=== PATIENT | male | born 1960 | race Caucasian/White ===

== ENCOUNTER 2023-04-11 09:27 | Inpatient (IN) | payer BC ==
[~2023-04-11] VITALS: Ht 175.3 cm; Wt 75.0 kg
--- NOTE | ~2023-04-11 | DS ---
[facility] [address] [place], [place] [address] Draft ADMISSION DATE: 04/19/2023 DISCHARGE DATE: 04/22/2023 REASON FOR ADMISSION: This 62-year-old white man is a patient Dr. Sukumar Antonio of [place], [place]. He has had chronic recurrent diverticulitis over quite some time manifest dominant by left lower abdominal pain. CT scan has shown dense inflammatory changes of the sigmoid as performed in [place], [place]. The patient has had severe progressive problems in the past few months including weight loss over 25 pounds in the past eight weeks and a prealbumin currently at 13.3. He is known to have diverticulosis from prior colonoscopy in the distant past. He is admitted at this time to undergo sigmoid resection for chronic recurrent persistent diverticulitis. Of note, the patient underwent colonoscopy the day prior to this operation to assure there was no evidence of malignancy associated with the diverticular process nor any proximal lesion or distal lesion that would impact on the extent of resection. PERTINENT PHYSICAL EXAMINATION: GENERAL: Pleasant white man, who looks to be in no acute distress. Height is 5 feet 9 inches. Weight is 75 kg. BMI 24.4. VITAL SIGNS: Temperature 97.7, pulse 66, blood pressure 113/72. Trachea is midline. CHEST: Clear. HEART: Regular without murmur. ABDOMEN: Nondistended. There is no ascites. There is no palpable mass or tenderness currently. HOSPITAL COURSE: On April 19, 2023, he underwent a low midline open exploration of abdomen where he was found to have a rock-hard sigmoid extending down beyond the pelvic brim consistent with recurrent acute sigmoid diverticulitis. Complete sigmoid resection was undertaken as well as proximal rectum and the side-to-end coloproctostomy performed. A small intramesenteric abscess was noted at time of operation. The rectum and the more proximal colon, however, were normal other than scattered diverticula proximally. Incidentally, I noted there was a relatively large Meckel's diverticulum. This was concurrently excised. He did undergo bilateral TAP blocks at the conclusion of operation. He was begun on a clear liquid diet the night of operation, which he did tolerate. By morning, he did have some bowel movement. He was given a full liquid diet, ambulation PATIENT NAME: LOREN MCLEAN DISCHARGE SUMMARY DATE OF : 58 REPORT #: [id number] PHYSICIAN: DERIK OLIVERA MD PCP: SUKUMAR ANTONIO MD REPORT IS CONFIDENTIAL AND NOT TO BE RELEASED WITHOUT AUTHORIZATION [facility] [address] [place] [id number] Draft and antibiotics including Ancef and Flagyl had been given for at least 24 hours. By the 2nd postoperative day, his diet was advanced to a regular diet. He had bowel movements and the drain that had been placed in the pelvis showed only serous fluid and therefore, it was removed. By postop day 3, he is ambulating well, tolerating a regular diet, has minimal incisional pain control primarily by Tylenol and Motrin and feels ready for discharge. His wound is healing well. The drain was place was removed. He is discharged home in good condition. DISCHARGE MEDICATIONS: Will include: 1. Motrin 600 mg p.o. q.6 hours as needed for pain #30, refill one. 2. Dilaudid 2 mg tablets 1-2 p.o. q.4 hours as needed for extreme pain #10. 3. Tylenol 500 mg two tablets p.o. q.6 hours as needed for pain #60 refill one. He will resume his usual medication of lisinopril 10 mg p.o. at bedtime, CoQ10 200 mg tablets p.o. at bedtime. 4. Melatonin 5 mg p.o. at bedtime for insomnia. 5. Vitamin D3 125 mcg (5000 unit) p.o. at bedtime. 6. Zolpidem 10 mg half tab p.o. at bedtime for insomnia. 7. Lovastatin 20 mg p.o. at bedtime for cholesterol medication. He will discontinue the doxycycline that he was taking prior to admission to the hospital. FOLLOWUP PLANS: He will call on Sunday to set up an appointment to see me back in the office in a month or so. He is instructed to walk on a daily basis and should not lift more than 20 pounds for the next four weeks. He is advised that he may drive as long as he is not on opiate medication and is able to return to work when he feels ready within the limits previously described. DISCHARGE DIAGNOSIS: 1. Severe recurrent persistent sigmoid diverticulitis with localized perforation, chronic inflammatory change. 2. Status post sigmoid colectomy with side-to-end coloproctostomy. 3. Significant weight loss greater than 25 pounds over eight weeks. Prealbumin 13.3. 4. Hypertension. 5. Insomnia. 6. Dyslipidemia. 7. Incidentally noted Meckel's diverticulum status post resection at the time of operation. PATIENT NAME: LOREN MCLEAN DISCHARGE SUMMARY DATE OF : 58 REPORT #: [id number] PHYSICIAN: DERIK OLIVERA MD PCP: SUKUMAR ANTONIO MD REPORT IS CONFIDENTIAL AND NOT TO BE RELEASED WITHOUT AUTHORIZATION [facility] [address] [place] [address] Draft MD XIOMY Burnette/BOBBI /[id number] cc: MD Bairon Ortiz [place] Copies: ~ PATIENT NAME: LOREN MCLEAN DISCHARGE SUMMARY DATE OF : 58 REPORT #: [id number] PHYSICIAN: DERIK OLIVERA MD PCP: SUKUMAR ANTONIO MD REPORT IS CONFIDENTIAL AND NOT TO BE RELEASED WITHOUT AUTHORIZATION
--- OUTSIDE RECORDS SUMMARY | ~2023-04-11 | XMS | Continuity of Care Document ---
Demographics + + + | Address | [address] | | | [place] [address] | + + + | Preferred Language | Unknown | + + + | Marital Status | | + + + | Faith Affiliation | Unknown | + + + | Race | White | + + + | Ethnic Group | Not or | + + + Author + + + | Author | [facility] | + + + | Organization | [facility] | + + + | Address | [address] [facility] [facility] [address] [facility] | | | [place] [address] | + + + | Phone | | + + + Care Team Providers + + + + | Care Radial Arm Saw Operator Name | Role | Phone | + + + + Unavailable | Unavailable | + + + + Unavailable | Unavailable | + + + + Unavailable | Unavailable | + + + + Allergies and Intolerances + + + + + + | date | description | facility | reaction | severity | + + + + + + | (no date) | No Known Drug | [facility] | (no reaction) | (no severity) | | | Allergies | | | | + + + + + + Encounters No information. Functional Status No information. Immunizations No information. Medications + + + + | date | description | facility | + + + + | 2023-04-18 00:00 | LISINOPRIL | [facility] | + + + + | 2023-04-18 00:00 | UBIDECARENONE | [facility] | + + + + | 2023-04-18 00:00 | DOXYCYCLINE HYCLATE | [facility] | + + + + | 2023-04-18 00:00 | Melatonin | [facility] | + + + + | 2023-04-18 00:00 | ZOLPIDEM TARTRATE | [facility] | + + + + | 2023-04-18 00:00 | Cholecalciferol (Vitamin | [facility] | | | D3) | | + + + + Problems + + + + | date | description | facility | + + + + | 2023-04-12 13:41 | COUGH, UNSPECIFIED | [facility] | + + + + | 2023-04-12 13:41 | ENCOUNTER FOR OTHER | [facility] | | | PREPROCEDURAL EXAMINATION | | + + + + | 2023-04-18 10:50 | DVTRCLI OF INTEST, PART | [facility] | | | UNSP, W/O PERF O | | + + + + | 2023-04-18 12:00 | DVTRCLI OF INTEST, PART | [facility] | | | UNSP, W/O PERF O | | + + + + | 2023-04-19 07:30 | DVTRCLI OF CAR[place], PART | [facility] | | | UNSP, W/O PERF O | | + + + + Procedures No information. Results/Labs +--------+--------+ +---------+--------+---------+ | test | date | facility | value | unit | notes | +--------+--------+ +---------+--------+---------+ + + | Result panel 1 | + + + + + +--------+ + + | | 2023-04-12 | [facility] | 13.8 | (missing) | (missing) | | (unavailable | [facility] | | | + + + +--------+ + + + + | Result panel 2 | + + + + + +--------+ + + | | 2023-04-12 | [facility] | 82.0 | (missing) | (missing) | | (unavailable | [facility] | | | | + + + +--------+ + + + + | Result panel 3 | + + + + + +--------+ + + | | 2023-04-12 | [facility] | 10.3 | (missing) | (missing) | | (unavailable | [facility] | | | | + + + +--------+ + + + + | Result panel 4 | + + + + + +-------+ + + | | 2023-04-12 | [facility] | 6.7 | (missing) | (missing) | | (unavailable | [facility] | | | | + + + +-------+ + + + + | Result panel 5 | + + + + + +-------+ + + | | 2023-04-12 | [facility] | 0.4 | (missing) | (missing) | | (unavailable | [facility] | | | + + + +-------+ + + + + | Result panel 6 | + + + + + +-------+ + + | | 2023-04-12 | [facility] | 0.6 | (missing) | (missing) | | (unavailable | [facility] | | | + + + +-------+ + + + + | Result panel 7 | + + + + + +--------+ + + | | 2023-04-12 | [facility] | 14.0 | (missing) | (missing) | | (unavailable | [facility] | | | + + + +--------+ + + + + | Result panel 8 | + + + + + +-------+---------+ + | | 2023-04-12 | [facility] | 118 | mg/dL | (missing) | | (unavailable | [facility]07 [facility] | | | + + + +-------+---------+ + + + | Result panel 9 | + + + + + +------+---------+ + | | 2023-04-12 | [facility] | 15 | mg/dL | (missing) | | (unavailable | [facility]07 [facility] | | | | + + + +------+---------+ + + + | Result panel 10 | + + + + + +--------+---------+ + | | 2023-04-12 | [facility] | 0.80 | mg/dL | (missing) | | (unavailable | [facility]::07 [facility] | | | | + + + +--------+---------+ + + + | Result panel 11 | + + + + + +------+ + + | | 2023-04-12 | [facility] | 99 | (missing) | (missing) | | (unavailable | [facility]07 [facility] | | | + + + +------+ + + + + | Result panel 12 | + + + + + +--------+ + + | | 2023-04-12 | [facility] | 4.19 | (missing) | (missing) | | (unavailable | [facility] | | | + + + +--------+ + + + + | Result panel 13 | + + + + + +---------+ + + | | 2023-04-12 | [facility] | 18.75 | (missing) | (missing) | | (unavailable | [facility]07 [facility] | | | + + + +---------+ + + + + | Result panel 14 | + + + + + +-------+ + + | | 2023-04-12 | [facility] | 137 | (missing) | (missing) | | (unavailable | [facility]07 [facility] | | | + + + +-------+ + + + + | Result panel 15 | + + + + + +-------+ + + | | 2023-04-12 | [facility] | 3.3 | (missing) | (missing) | | (unavailable | [facility] | | | + + + +-------+ + + + + | Result panel 16 | + + + + + +------+ + + | | 2023-04-12 | [facility] | 98 | (missing) | (missing) | | (unavailable | [facility]07 [facility] | | | + + + +------+ + + + + | Result panel 17 | + + + + + +------+ + + | | 2023-04-12 | [facility] | 31 | (missing) | (missing) | | (unavailable | [facility]07 [facility] | | | + + + +------+ + + + + | Result panel 18 | + + + + + +--------+ + + | | 2023-04-12 | [facility] | 11.3 | (missing) | (missing) | | (unavailable | [facility] | | | + + + +--------+ + + + + | Result panel 19 | + + + + + +-------+---------+ + | | 2023-04-12 | [facility] | 9.0 | mg/dL | (missing) | | (unavailable | [facility]07 [facility] | | | + + + +-------+---------+ + + + | Result panel 20 | + + + + + +-------+ + + | | 2023-04-12 | [facility] | 7.2 | (missing) | (missing) | | (unavailable | [facility] | | | + + + +-------+ + + + + | Result panel 21 | + + + + + +-------+ + + | | 2023-04-12 | [facility] | 2.9 | (missing) | (missing) | | (unavailable | [facility] | | | + + + +-------+ + + + + | Result panel 22 | + + + + + +-------+ + + | | 2023-04-12 | [facility] | 4.3 | (missing) | (missing) | | (unavailable | [facility] | | | + + + +-------+ + + + + | Result panel 23 | + + + + + +--------+ + + | | 2023-04-12 | [facility] | 11.4 | (missing) | (missing) | | (unavailable | 15:: [facility] | | | + + + +--------+ + + + + | Result panel 24 | + + + + + +--------+ + + | | 2023-04-12 | [facility] | 0.67 | (missing) | (missing) | | (unavailable | [facility] | | | + + + +--------+ + + + + | Result panel 25 | + + + + + +-------+ + + | | 2023-04-12 | [facility] | 0.3 | (missing) | (missing) | | (unavailable | [facility]::07 [facility] | | | + + + +-------+ + + + + | Result panel 26 | + + + + + +------+ + + | | 2023-04-12 | [facility] | 24 | (missing) | (missing) | | (unavailable | [facility]::07 [facility] | | | + + + +------+ + + + + | Result panel 27 | + + + + + +------+ + + | | 2023-04-12 | [facility] | 51 | (missing) | (missing) | | (unavailable | [facility]: [facility] | | | + + + +------+ + + + + | Result panel 28 | + + + + + +------+ + + | | 2023-04-12 | [facility] | 65 | (missing) | (missing) | | (unavailable | 15:: [facility] | | | + + + +------+ + + + + | Result panel 29 | + + + + + +--------+ + + | | 2023-04-12 | [facility] | 34.4 | (missing) | (missing) | | (unavailable | [facility] | | | + + + +--------+ + + + + | Result panel 30 | + + + + + +--------+ + + | | 2023-04-12 | [facility] | 82.2 | (missing) | (missing) | | (unavailable | [facility]07 [facility] | | | + + + +--------+ + + + + | Result panel 31 | + + + + + +--------+ + + | | 2023-04-12 | [facility] | 27.3 | (missing) | (missing) | | (unavailable | [facility] | | | + + + +--------+ + + + + | Result panel 32 | + + + + + +--------+ + + | | 2023-04-12 | [facility] | 33.2 | (missing) | (missing) | | (unavailable | [facility] | | | + + + +--------+ + + + + | Result panel 33 | + + + + + +--------+ + + | | 2023-04-12 | [facility] | 15.2 | (missing) | (missing) | | (unavailable | [facility] | | | + + + +--------+ + + + + | Result panel 34 | + + + + + +-------+ + + | | 2023-04-12 | [facility] | 438 | (missing) | (missing) | | (unavailable | [facility] | | | + + + +-------+ + + Social History No information. Vital Signs + + + +---------+ | date | measurement | value | units | + + + +---------+ | 2023-04-12 00:00 | BMI | 24.4 | kg/m2 | + + + +---------+ | 2023-04-12 00:00 | height_metric | 175.26 | cm | + + + +---------+ | 2023-04-12 00:00 | height_standard | 69 | in | + + + +---------+ | 2023-04-12 00:00 | weight_metric | 75 | kg | + + + +---------+ | 2023-04-12 00:00 | weight_standard | 165.35 | lb | + + + +---------+ | 2023-04-18 00:00 | BP_diastolic | 79 | mmHg | + + + +---------+ | 2023-04-18 00:00 | BP_systolic | 120 | mmHg | + + + +---------+ | 2023-04-18 00:00 | heart_rate | 90 | /min | + + + +---------+ | 2023-04-18 00:00 | o2_saturation | 98 | % | + + + +---------+ | 2023-04-18 00:00 | respiration_rate | 18 | /min | + + + +---------+ | 2023-04-18 00:00 | temperature_metric | 36.67 | C | | | | | | + + + +---------+ | 2023-04-18 00:00 | | 98 | F | | | temperature_standar | | | | | d | | | + + + +---------+"
[~2023-04-11 09:27] MED LIST: CO Q-10200 MG PO; LOVASTATIN20 MG PO; ZESTRIL10 MG PO
[2023-04-12] MEDS ORDERED: AMBIEN5 MG PO (14:20)
[2023-04-12] MEDS ORDERED: MELATONIN5 M5 PO (14:20)
[2023-04-12] MEDS ORDERED: DOXYCYCLINE HY100 MG PO (14:21)
[2023-04-12] MEDS ORDERED: VITAMIN D3125 MC1 PO (14:21)
[2023-04-12 14:35] VITALS: BP 108/64
[2023-04-19] VITALS (7 sets, daily range): BP systolic 89–118; BP diastolic 52–92
[2023-04-19 06:28] LABS: BASOPHILS 0.2 % (0-2); EOSINOPHILS 0.1 % (0-6); HEMOGLOBIN 12.6 g/dL (12.0-18.0); LYMPHOCYTES 11.4 % (24-44); MCH 26.8 (27-36); MCHC 32.3 g/dl (30-36); MONOCYTES 4.3 % (0-12); PLATELET COUNT 425 K/uL (140-440); RDW 15.7 (10.5-15.0)
[2023-04-19 06:54] LABS: ALBUMIN 3.1 g/dL (3.4-5.0); ALBUMIN/GLOBULIN RATIO 0.65 (1.1-2.4); ANION GAP 17.6 (7-21); BILIRUBIN, TOTAL 0.9 ng/dL (0.2-1.0); BUN/CREATININE RATIO 17.72 (6.0-28.6); CALCIUM 9.4 mg/dL (8.5-10.1); CREATININE, SERUM 0.79 mg/dL (0.70-1.30); POTASSIUM 3.6 mmol/L (3.5-5.1); PROTEIN, TOTAL 7.9 g/dL (6.4-8.2)
--- NOTE | 2023-04-19 07:05 | NUR ---
LE 06-PATIENT REPORTS NAUSEA THIS AM. PATIENT STATES LAST HE HAD N/V/D. PATEINT UP TO RESTROOM AND DID VOMIT. 06 PHONE CALL TO BERKLEY STRICKLAND WITH UPDATE ON PATIENT. VO ZOFRAN 4MG IV AND A SCOP PATCH NOW. ORDERS GIVEN FOR BENADRYL 12.5MG IV X'S 2 IF NEEDED AND THEN COMPAZINE 5MG IV IF NEEDED.
--- NOTE | 2023-04-19 12:20 | NUR ---
04/19/23 1220 Simi Mera 1203- PT PRESENTS TO PACU, SEMI YOON POSITION, NON REACTIVE TO ANY STIMULUS. PT HAS O2 PER MASK AT 8 LITERS. LR INFUSING TO RFA IV, SMALLWOOD CATHETER DRAINING CLEAR YELLOW URINE. DRESSINGS IN PLACE TO ABD, CDI. ABD NON DISTENDED, SOFT. ALL MONITORS APPLIED. YUNG DRAIN TO LLQ ABD DRAINING SEROSANGINOUS FLUID.
--- NOTE | 2023-04-19 13:05 | NUR ---
PT ARRIVES TO UNIT IN BED. BEDSIDE REPORT RECEIVED FROM LARY HOOVER. VITALS COMPLETE. IV FLUSHES WNL. ASSESSMET COMPLETE. LUNG SOUNDS CLEAR. BOWEL TONES HYPOACTIVE. PT REPORTS TENDERNESS WITH ABD PALPATION. MIDLINE DRESSING C/D/I. DRESSING TO YUNG DRAIN ON LLQ C/D/I. PT REQUESTING WATER. WATER PROVIDED. PT DENIES ANY OTHER NEEDS AT THIS TIME. CALL LIGHT IN REACH.
--- NOTE | 2023-04-19 15:18 | NUR ---
IN TO ADMINISTER MEDICATIONS, SEE MAR. IV INFUSING WNL. VITALS COMPLETE. PT AWAKENS. PT DENIES ANY NEEDS AT THIS TIME. CALL LIGHT IN REACH. IN ROOM.
--- NOTE | 2023-04-19 16:00 | NUR ---
THIS DIGITAL FORENSIC EXAMINER BLADDER SCANNED PATIENT PER RN, 45ML WAS NOTED. RN NOTIFIED.
--- NOTE | 2023-04-19 17:00 | NUR ---
Spoke with pt and his . They currently live in [place] in a 2 story home. 2 steps into home, but stairs to bedroom. Pt plans on staying on the main floor until he can use stairs without issue. Pt usually very active and does not use DME. Per pt he will have a 5-7 day stay and go home. will be working, but he feels he will be fine at home without assist. No financial issues. Plan to dc to home when cleared medically.
--- NOTE | 2023-04-19 18:00 | NUR ---
IN TO ROUND ON PT. PT REPORTS BEING FINISHED WITH DINNER TRAY. TRAY REMOVED. TALKED TO PT ABOUT SITTING AT EDGE OF BED. PT AGREEABLE. PT ABLE TO MOVE SELF TO SITTING POSITION ON EDGE OF BED. PT DENIES FELLING LIGHT HEADED OR DIZZY. PT AGREEABLE TO ATTEMPT TO STAND AT EDGE OF BED. FWW AND SBA PT STANDS AT EDGE OF BED. PT DENIES FEELING LIGHT HEADED OR DIZZY. PT REPORTING PAIN. PT SITS BACK DOWN IN BED. PT REPORTING PAIN 3/10 IN ABD. PRN PAIN MEDICATION ADMINISTERED, SEE MAR. PT LAYS BACK DOWN IN BED. SCDs PLACE BACK ON PT. WARM BLANKET PROVIDED. PT DENIES ANY OTHER NEEDS AT THIS TIME. CALL LIGHT IN REACH. IN ROOM.
--- NOTE | 2023-04-19 19:00 | NUR ---
SHIFT REPORT RECEIVED FROM DAYSHIFT LARY SAUCEDA AT BEDSIDE, pt AWAKE AND RESTING IN BED. MIDLINE DRESSING WNL, SCANT RED SHADOWING NOTED TO DISTAL END OF DRESSING. YUNG DRAIN TO LLQ, SCANT DRAINAGE ALSO NOTED. IV SITE WNL, FLUIDS INFUSING DIRECTED. CALL LIGHT IN REACH. NO NEEDS OR CONCERNS VERBALIZED.
--- NOTE | 2023-04-19 22:00 | NUR ---
SCHEDULED MEDS GIVEN-SEE EMAR. VSS, DISCUSSED BP RESULT WITH ENVIRONMENTAL COMPLIANCE MANAGER-SCHEDULED BLOOD PRESSURE GIVEN. IV SITE WNL, IV FLUIDS INFUSING DIRECTED. IV TYLENOL FOR REPORTED 5/10 ABD PAIN. BT ACTIVE, YUNG DRAIN EMPTIED. NO NEW SHOWDING NOTED TO YUNG DRAIN OR MIDLINE DRESSING. SCD'S IN PLACE. CALL LIGHT IN REACH.
--- NOTE | 2023-04-19 23:00 | NUR ---
SCHEDULED IV FLAGYL INFUSING DIRECTED, IV SITE REMAINS WNL. FRESH ICE WATER PROVIDED. NO ADDITIONAL NEEDS OR CONCERNS.
[2023-04-20] VITALS (7 sets, daily range): BP systolic 86–128; BP diastolic 51–67
--- NOTE | 2023-04-20 00:38 | NUR ---
pt RESTING IN BED, ON RA. RR EVEN AND UNLABORED, SPO2 LOW 90'S, HR WNL. NO DISTRESS NOTED. IV SITE WNL, IV FLUIDS INFUSING DIRECTED. CALL LIGHT IN REACH AND SCD'S REMAIN ON.
--- NOTE | 2023-04-20 01:38 | NUR ---
IN ROOM TO ROUND ON pt, ASSESSMENT COMPLETE. NO ACUTE CAHNGES. pt REPOERTS PAIN 2.5/10 IN ABD, pt DENIES NEED FOR PAIN MEDICATION. RECHECKED BP, WNL. IV SITE WNL, IV FLUIDS INFUSING DIRECTED. SCD'S IN PLACE. NO NEW SHADOWING TO MIDLINE OR YUNG DRESSING. CALL LIGHT IN REACH, pT DEMONSTRATED USE OF IS AND EDUCTED ON USE TO PREVENT POST-OP COMPLICATIONS. pt VERBALIZED UNDERSTANDING.
--- NOTE | 2023-04-20 02:15 | NUR ---
IV PUMP ALARMING, NEW BAG IV FLUIDS HUNG AND INFUSING DIRECTED. IV SITE WNL. NO NEEDS OR CONCERNS, CALL LIGHT INR EACH.
--- NOTE | 2023-04-20 04:45 | NUR ---
CALL LIGHT ANSWERED, pt UP TO BSC TO HAVE POSSIBLE BM. CALL LIGHT IN REACH.
--- NOTE | 2023-04-20 05:08 | NUR ---
IN ROOM TO ANSWER CALL LIGHT, pt HAD NO BM, BUT REPORTS PASSING "VERY SMALL" AMOUT OF GAS. NEW STAT LOCK IN PLACE, VSS AND I7O'S COLLECTED. IV SITE WNL, FLUIDS INFUSING DIRECTED. pt REPORTS PAIN IS TOLERABLE, DENIES NEED FOR PAIN MEDICATION. pt AMBULATED IN HALLWAY X1 LAP SBA WITH FWW, TOLERATED VERY WELL. NO NEW SHADOWING NOTED TO MIDLINE/YUNG DRESSING. SCD'S IN PLACE, FRESH ICE WATER PROVIDED. NO ADDITIONAL NEEDS OR CONCERNS. LAB IN ROOM FOR AM LAB DRAWS.
[2023-04-20 05:30] LABS: BASOPHILS 0.3 % (0-2); HEMATOCRIT 34.9 % (35.0-50.0); LYMPHOCYTES 3.6 % (24-44); MCH 26.3 (27-36); MCHC 31.6 g/dl (30-36); MCV 83.2 fl (81-99); MONOCYTES 1.4 % (0-12); NEUTROPHILS 94.7 % (39-80); PLATELET COUNT 429 K/uL (140-440); RBC 4.19 M/ul (4.3-5.7); RDW 15.5 (10.5-15.0)
[2023-04-20 05:46] LABS: ANION GAP 12.9 (7-21); BUN/CREATININE RATIO 11.11 (6.0-28.6); CALCIUM 8.8 mg/dL (8.5-10.1); CREATININE, SERUM 0.99 mg/dL (0.70-1.30); POTASSIUM 3.9 mmol/L (3.5-5.1)
--- NOTE | 2023-04-20 06:31 | NUR ---
prn pain medication given for reported 5/10 pain to abd, see emar. pt awake and recently had bm, liquid per pt. iv site wnl, iv abx also given as scheduled-see emar. scd's in place. no additional needs or concerns verbalzied, pt in good spirits. call light in reach.
--- NOTE | 2023-04-20 07:30 | NUR ---
PATIENT AWAKE, BACK FROM RESTROOM. BEDSIDE REPORT WITH HS NURSE. PATIENT RATES PAIN 4/10 ON PAIN, STATES " I CAN'T TAKE A DEEP BREATH, BUT AT REST I FEEL OKAY" ADMINISTERED TYLENOL PRN PER OCT.
[2023-04-20] MEDS ORDERED: ZOLPIDEM TARTRA10 MG PO (08:12)
[2023-04-20] MEDS ORDERED: DOXYCYCLINE HY100 M3 PO (08:13)
[2023-04-20] MEDS ORDERED: LOVASTATIN20 MG PO (08:14)
[2023-04-20] MEDS ORDERED: OMEPRAZOLE20 MG PO (08:14)
[2023-04-20] MEDS ORDERED: FLUTICASONE PRO16 GM NAS (08:15)
--- NOTE | 2023-04-20 09:28 | NUR ---
TYLENOL PO NOT EFFECTIVE FOR PAIN CONTROL, PATIENT REPORTS PAIN 5/10 ON PAIN SCALE HAS INCREASED PAIN WITH HICCUPS. PATIENT REQUESTING SOMETHING MORE FOR PAIN. CALL TO DR. OLIVERA, LEFT MESSAGE. DRESSING TO ABDOMEN C/D/I, YUNG 30 ML OUT AND PATIENT VOIDING WELL INTO SMALLWOOD 530 OUT. VS WNL. RESCHEDULED LISINOPRIL TO BE ADMINISTERED AT HS.
--- NOTE | 2023-04-20 09:49 | NUR ---
TELEPHONE ORDER FROM DR. OLIVERA FOR PAIN MEDICATION. VERBALIZED TO USE THE IV DILAUDID FOR SEVERE PAIN, AND TO ENCOURAGE AMBULATION.
--- NOTE | 2023-04-20 10:06 | NUR ---
MED REC COMPLETE
--- NOTE | 2023-04-20 13:32 | NUR ---
PT AMB IN [place] WITH FAMILY, DENIES NEEDS.
--- NOTE | 2023-04-20 16:51 | NUR ---
pt requested pain med, dislikes the iv dilaudid and dislikes the tylenol. po dilaudid given. pt alert and oriented reports 11/20 abd. pain - visiting with family and call light in reach.
--- NOTE | 2023-04-20 18:00 | NUR ---
PT REPORTS PAIN STARTING TO IMPROVE, VISITING WITH FAMILY, SELIN SALOMON, JUVENCIO FUSING. CALL LIGHT IN REACH.
--- NOTE | 2023-04-20 19:35 | NUR ---
REPORT RECEIVED FROM DAY SHIFT RN. PT RESTING IN BED. SAFETY PRECAUTIONS MAINTAINED. CALL LIGHT WITHIN REACH. WILL CONTINUE TO MONITOR.
--- NOTE | 2023-04-20 19:40 | NUR ---
Assisted Pt from bed to bathroom and back SBA FWW. SCDs on, and call light left in reach. No other needs expressed by Pt.
--- NOTE | 2023-04-20 21:23 | NUR ---
PT ASSESSED AND MEDICATIONS GIVEN. IVF INFUSING PER ORDER. IV ABX ADMINISTERED. YUGN DRAIN IN PLACE. MIDLINE CDI. SAFETY PRECAUTIONS MAINTAINED. CALL LIGHT WITHIN REACH. WILL CONTINUE TO MONITOR.
--- NOTE | 2023-04-21 02:03 | NUR ---
PT ASSISTED TO BATHROOM AT THIS TIME. TOLERATED WELL. PT HELPED BACK INTO BED. IV FLUIDS INFUSING. SCD'S IN PLACE. CALL LIGHT WITHIN REACH. SAFETY PRECAUTIONS IN PLACE.
--- NOTE | 2023-04-21 04:30 | NUR ---
PT LYING BED WITH EYES CLOSED. BREATHING EVEN AND UNLABORED. SMALLWOOD IN PLACE. IV FLUIDS INFUSING. CALL LIGHT WITHIN REACH. SAFETY PRECAUTIONS IN PLACE.
[2023-04-21 05:12] LABS: BASOPHILS 0.2 % (0-2); HEMATOCRIT 29.5 % (35.0-50.0); HEMOGLOBIN 9.6 g/dL (12.0-18.0); LYMPHOCYTES 8.5 % (24-44); MCH 26.8 (27-36); MCHC 32.6 g/dl (30-36); MCV 82.1 fl (81-99); MONOCYTES 4.4 % (0-12); NEUTROPHILS 86.9 % (39-80); PLATELET COUNT 363 K/uL (140-440); RDW 15.7 (10.5-15.0)
[2023-04-21 05:39] VITALS: BP 123/75
--- NOTE | 2023-04-21 07:14 | NUR ---
REPORT GIVEN TO DAYSHIFT NURSE. PT IN NO ACUTE DISTRESS AND UP TP RESTROOM AT THIS TIME. NO NEEDS EXPRESSED AT THIS TIME.
--- NOTE | 2023-04-21 07:21 | NUR ---
PATIENT AMBULATED IN HALLS, PAIN WELL CONTROLLED. APPEARS STEADY ON FEET. PATIENT TO BATHROOM VOIDED 200 ML OF URINE. PATIENT REPORTS CONTINUES TO HAVE DIARRHEA.
[2023-04-21 08:03] VITALS: BP 118/69
[2023-04-21 13:12] VITALS: BP 120/75
[2023-04-21 18:13] VITALS: BP 117/61
[2023-04-21 20:31] VITALS: BP 113/72
--- NOTE | 2023-04-21 20:49 | NUR ---
PT ASSESSED AND MEDICATIONS GIVEN. PT INDEPENDENT IN ROOM AND AMBULATING IN HALLS. VSS. YUNG DRAIN INTACT. SAFETY PRECAUTIONS MAINTAINED. CALL LIGHT WITHIN REACH. WILL CONTINUE TO MONITOR.
[2023-04-22 05:11] VITALS: BP 129/73
[2023-04-22 05:29] LABS: BASOPHILS 0.7 % (0-2); EOSINOPHILS 1.2 % (0-6); HEMOGLOBIN 10.5 g/dL (12.0-18.0); LYMPHOCYTES 21.4 % (24-44); MCH 27.3 (27-36); MCHC 32.8 g/dl (30-36); MCV 83.1 fl (81-99); MONOCYTES 7.6 % (0-12); NEUTROPHILS 69.1 % (39-80); PLATELET COUNT 348 K/uL (140-440); RBC 3.85 M/ul (4.3-5.7); RDW 15.9 (10.5-15.0)
[2023-04-22 05:39] LABS: ANION GAP 8.2 (7-21); BUN/CREATININE RATIO 12.5 (6.0-28.6); CALCIUM 8.6 mg/dL (8.5-10.1); CREATININE, SERUM 0.72 mg/dL (0.70-1.30); MAGNESIUM 1.8 mg/dL (1.8-2.4); POTASSIUM 4.2 mmol/L (3.5-5.1)
--- NOTE | 2023-04-22 06:38 | NUR ---
PT RESTED WELL THROUGHOUT THE SHIFT. PT INDEPENDENT TO THE BATHROOM. GOOD OUTPUT NOTED. YUGN DRAIN INTACT WITH 65ML OUTPUT NOTED. TYLENOL AND MOTRIN GIVEN FOR PAIN. SAFETY PRECAUTIONS MAINTAINED. CALL LIGHT WITHIN REACH. WILL CONTINUE TO MONITOR.
--- NOTE | 2023-04-22 08:07 | NUR ---
REPORT RECEIVED FROM BHAVIN BARTH. IN TO CHECK ON PT, IS INT THE ROOM. HE IS JUST GETTING UP TO GO FOR A WALK, ASKING WHEN BREAKFAST WILL BE, DENIES NEED FOR PAIN MEDICATION.
[2023-04-22 09:01] VITALS: BP 130/71
--- NOTE | 2023-04-22 09:07 | NUR ---
IN TO SEE PT AND DO ASSESSMENT AND AM MEDS. PT IS IN BED WITH IN ROOM, HE HAS JUST GOTTEN BACK FROM AMBULATING IN THE HALLWAYS. PT DENIES NEED FOR PAIN MEDICATION, PT STATES HE IS HOPING TO BE DISCHARGED TODAY AND WOULD TAKE A PAIN MEDICATION LATER RIGHT BEFORE HE LEAVES HE HAS A LONG DRIVE. LUNGS ARE CLEAR, PT HAS ACTIVE BOWEL TONES, DRESSING TO MIDLINE IS CDE, ABD SLIGHTLY TENDER, YUNG IN PLACE, EMPTIED OF 20ML SEROUS FLUID. PT WAS ABLE TO EAT HIS BREAKFAST AND HAS NO C/O NAUSEA.
--- NOTE | 2023-04-22 11:03 | NUR ---
IN TO CHECK ON PT, LUNCH OPTIONS DISCUSSED, CONT TO DENY NEED FOR PAIN MEDICATION.
--- NOTE | 2023-04-22 12:00 | NUR ---
PT UP AMBULATING IN HALLS WITH .
--- NOTE | 2023-04-22 12:42 | NUR ---
DR OLIVERA IN TO SEE PT AND DISCHARGE HIM HOME.
[2023-04-22] MEDS ORDERED: IBUPROFEN600 MG PO (12:48)
[2023-04-22] MEDS ORDERED: HYDROMORPHONE HC2 MG PO (12:48)
[2023-04-22] MEDS ORDERED: ACETAMINOPHEN500 MG PO (12:48)
--- NOTE | 2023-04-22 12:48 | NUR ---
PT GIVEN PRN TYLENOL AND IBUPROFEN FOR 4/10 ABDOMINAL PAIN
--- NOTE | 2023-04-22 13:01 | NUR ---
DISCHARGE INSTRUCTIONS GIVEN TO PT INCLUDING TO MAKE A FOLLOW UP APPOINTMENT WITH DR OLIVERA AND TO CALL WITH ANY CONCERNS. QUESTIONS ANSWERED. IV DC/D WITH TIP INTACT. VSS.
[2023-04-22 13:02] VITALS: BP 130/70
--- NOTE | 2023-04-22 14:16 | OR ---
[facility] [address] [place], [place] [address] Signed DATE OF OPERATION: 04/19/2023 SURGEON: Derik Olivera MD PREOPERATIVE DIAGNOSIS: Chronic persistent, recurrent, severe diverticulitis. POSTOPERATIVE DIAGNOSES: 1. Chronic persistent, recurrent, severe diverticulitis. 2. Severe chronic sigmoid diverticulitis and dense fibrosis to the left pelvic sidewall with small intramesenteric abscess. 3. Meckel's diverticulum. PROCEDURES: 1. Sigmoid colectomy with side-to-end coloproctostomy; prolonged, complicated and difficult. 2. Mobilization of splenic flexure. 3. Excision of Meckel's diverticulum. ANESTHESIA: General endotracheal, Roldan Daniel, PRINCIPAL CLERK and postoperative bilateral TAP blocks. INDICATION: This 62-year-old white man is a patient of Sukumar Antonio of [place], [place]. He has had chronic recurrent diverticulitis manifested primarily by left lower abdominal pain. His evaluation has included a CT scan showing a dense inflammatory changes of the sigmoid. The patient has had severe progressive problems including weight loss of over 25 pounds in the past eight weeks and a prealbumin found to be 13.3. He is known to have diverticulosis from prior colonoscopy in the distant past. He underwent colonoscopy by me yesterday the day before surgery to affirm there was no evidence of malignancy. He had such a dense narrowing of the sigmoid that conventional colonoscope could not pass through it and on that basis, a pediatric upper endoscope was used to perform complete and total colonoscopy showing only one small polyp, numerous diverticula and the area of stricture as previously described. He is admitted at this time to undergo a sigmoid colectomy with primary anastomosis. He understands the risk of bleeding, infection, need for possible ostomy (unlikely) and other unforeseen complications related to resection including ureteral injury. Understand all this, he wished to proceed. Electronically Signed By: DERIK OLIVERA MD 04/22/23 1416 PATIENT NAME: LOREN MCLEAN OPERATIVE REPORT DATE OF : 58 REPORT #: [id number] PHYSICIAN: DERIK OLIVERA MD PCP: SUKUMAR ANTONIO MD REPORT IS CONFIDENTIAL AND NOT TO BE RELEASED WITHOUT AUTHORIZATION [facility] [address] [place], [place] [address] Signed FINDINGS: There is mild amount of ascites. No evidence of carcinomatosis and the liver was palpably normal as was the gallbladder. The inflammatory process of the sigmoid was quite profound and dense fibrosis was noted of the entire sigmoid to the left lateral sidewall and down into the pelvis to a degree. Atypical coiled spring appearance of the rectosigmoid was noted. Ultimately, the process was dissected free from the retroperitoneum and lateral sidewall allowing for resection of the sigmoid and proximal rectum with a tension-free side-to-end coloproctostomy. This did require splenic flexure mobilization. Incidentally noted was a relatively sizable Meckel's diverticulum in its typical position. This was excised transversely and closed. DESCRIPTION OF PROCEDURE: The patient was brought to the operating room and given a general endotracheal anesthetic. He had undergone a full bowel prep including oral antibiotics and preoperative antibiotics were given as well. A Mckeon catheter was placed. The abdomen was clipped and prepared with a chlorhexidine solution and draped sterilely. Initially relatively small incision was made inferior to the umbilicus. Dissection was carried through the relatively thin abdominal wall subcutaneous space allowing for entry to the abdomen. Some ascites fluid was noted. Small bowel at first glance was normal. Palpation within the abdomen showed a dense rock-hard mass of the sigmoid, densely adherent to the pelvic sidewall and pelvic brim. Palpation of the upper abdomen demonstrated no evidence of neoplastic change of the liver. The gallbladder was palpably normal. A Bookwalter retractor was affixed to the table. The small bowel packed to the upper and right side of the abdomen, thus exposing well the left colon and sigmoid. Close inspection confirmed ongoing inflammation outside of the dense inflammatory mass of the sigmoid. The mesentery was somewhat involved, but could be mobile from the retroperitoneum itself. Using electrocautery, the white line of Toldt was incised proximal to the pathologic process in the area of normal colon. Persistent dissection was undertaken along the white line over the pelvic brim showing dense fibrosis indicative of chronic recurrent diverticulitis. Dissection was taken down into the pelvis with all due care to stay close to the colonic wall, so as to avoid the ureter or major vessels of the iliacs. A pus pocket was encountered in the mesentery of the rectosigmoid which was fleeting enough that a culture was not readily obtained. With persistent care and a fair amount of time, the sigmoid and rectosigmoid could be mobilized to the midline more fully. Normal rectum was ultimately identified distally and the proximal colon did have several diverticula, but no sign of inflammation within those areas. The sigmoid was mobilized Electronically Signed By: DERIK OLIVERA MD 04/22/23 1416 PATIENT NAME: LOREN MCLEAN OPERATIVE REPORT DATE OF : 58 REPORT #: [id number] PHYSICIAN: DERIK OLIVERA MD PCP: SUKUMAR ANTONIO MD REPORT IS CONFIDENTIAL AND NOT TO BE RELEASED WITHOUT AUTHORIZATION [facility] [address] [place], [place] [address] Signed completely to the midline. The splenic flexure was mobilized with blunt electrocautery dissection with meticulous care, mobilizing as much left colon as possible to allow for passage to the pelvis for a mid rectal anastomosis. The proximal colon was transected just above the area of involvement of the sigmoid colon with a FREYA stapling device. The mesentery was scored and vascular pedicle secured with 0 silk ties. Dissection was carried down to the pelvis with similar technique. Ultimately, the rectum was well mobilized in that area, which was considered normal, identified as appropriate site for anastomosis. The right angle bowel clamp was applied to the mid to upper rectum as was another clamp proximal to this and the specimen transected and passed from the table. The specimen was later opened on the back table by the circulating nurse, showing no evidence of mucosal neoplasm, dense fibrosis of the mesentery and quite obviously chronic inflammatory changes. Plans were then made for anastomosis. Further mobility of the left colon was undertaken with meticulous care, mobilizing the splenic flexure more fully. This would allow for a tension-free anastomosis. A side-to-end coloproctostomy was then undertaken in a two-layer technique of interrupted 3-0 silk suture. Good patency to the anastomosis was noted. Complete viability of both proximal and distal segments and no evidence of leakage with milking of liquid colonic contents through the anastomosis. Through a left lower quadrant incision, a 7 mm flat Matt drain was placed in the depths of the pelvis. Gloves were changed by all operating personnel. The isolating laparotomy packs removed and irrigation undertaken more fully. The small bowel was then manipulated and examined more fully. In an area concordant to the area of Meckel's diverticulum was a broad-based Meckel's diverticulum. There was no sign of acute inflammation or perforation. The Meckel's that was transected transversely with a FREYA stapling device, maintaining special care to avoid luminal narrowing. Staple line was then oversewn transversely with interrupted 3-0 silk sutures. Additional irrigation was undertaken and the small bowel loops were placed to the abdomen in anatomic configuration. Not mentioned previously was closure of the sigmoid mesenteric defect to the retroperitoneum to avoid postoperative herniation. Plans were then made for closure. The omentum was applied over the abdominal contents. The midline fascia reapproximated with running #1 PDS suture. Subcutaneous tissue was irrigated and skin closed with running subcuticular 3-0 Vicryl. Steri-Strips were applied as was an Acticoat dressing to the midline incision and the drain exit site. The drain was attached to bulb suction. The anesthesia team had been proceeded to embark upon TAP blocks for postoperative analgesic benefit. Electronically Signed By: DERIK OLIVERA MD 04/22/23 1416 PATIENT NAME: LOREN MCLEAN OPERATIVE REPORT DATE OF : 58 REPORT #: [id number] PHYSICIAN: DERIK OLIVERA MD PCP: SUKUMAR ANTONIO MD REPORT IS CONFIDENTIAL AND NOT TO BE RELEASED WITHOUT AUTHORIZATION [facility] [address] [place] [id number] Signed Sponge, needle, and instrument counts were reported as correct x3. The operation was prolonged, complicated, and difficult taking three times longer than normal ending at 1136 hours and beginning at 0800 hours. MD XIOMY Burnette/RUSSELLL /[id number] cc: Sukumar Antonio MD Copies: ~ Electronically Signed By: DERIK OLIVERA MD 04/22/23 1416 PATIENT NAME: LOREN MCLEAN OPERATIVE REPORT DATE OF : 58 REPORT #: [id number] PHYSICIAN: DERIK OLIVERA MD PCP: SUKUMAR ANTONIO MD REPORT IS CONFIDENTIAL AND NOT TO BE RELEASED WITHOUT AUTHORIZATION
--- NOTE | 2023-04-24 11:47 | PATH ---
[facility] [address] [place], [place] [address] Signed SPECIMEN(S): A SIGMOID COLON WITH PROXIMAL RECTUM SPECIMEN(S): B MECKEL'S DIVERTICULUM SPECIMEN SOURCE: A. SIGMOID COLON WITH PROXIMAL RECTUM B. MECKEL'S DIVERTICULUM CLINICAL HISTORY: Diverticulitis. FINAL PATHOLOGIC DIAGNOSIS: A. Sigmoid colon with proximal rectum: - Diverticulitis coli with focal acute inflammation and pericolonic abscess. - Focal mucosal ulceration. - Seven lymph nodes, negative for metastatic tumor. B. Meckel's diverticuli: - Benign small bowel-type mucosa consistent with clinical Meckel's diverticulum. JVR:[facility] MICROSCOPIC EXAMINATION: Histologic sections of all submitted blocks are examined by light microscopy. These findings, together with the gross examination, support the pathologic diagnosis. GROSS DESCRIPTION: A. The specimen, labeled and designated "Terry, G, " and designated on the requisition "sigmoid colon and proximal rectum," is received in formalin and consists of one segment of large bowel that is 18.5 cm in length and has an average internal circumference of 6.0 cm. The proximal resection margin has a black stitch present. The specimen has been previously opened. The specimen is indurated. The serosal surface is violaceous with red shaggy tissue. The mucosal surface is pink and finely granular with an increased folding pattern and one slightly raised area mucosa that is 2.4 x 1.6 cm. Sectioning through this area reveals multiple diverticula that communicate with an underlying purulent fluid-filled cavity. Sectioning through the remainder of the specimen reveals additional diverticula and purulent fluid-filled cavities within close proximity. The bowel wall has an average thickness of 1.5 cm. Seven possible lymph nodes are PATIENT NAME: LOREN MCLEAN PATHOLOGY DATE OF : 58 REPORT #: [id number] PHYSICIAN: HIRAM PATHOLOGY PCP: SUKUMAR ANTONIO MD REPORT IS CONFIDENTIAL AND NOT TO BE RELEASED WITHOUT AUTHORIZATION [facility] [address] [place], [place] [address] Signed grossly identified. Bail Agent sections are submitted in eight cassettes. Cassette Summary: (A1-A2) resection margins, shaved (A3) raised area of mucosa with underlying diverticula (A4-A6) diverticula to adjacent cavities (A7) two possible lymph nodes each bisected one arbitrarily inked (A8) five possible lymph nodes three submitted whole, two arbitrarily inked and bisected B. The specimen, labeled and designated "Olu Mclean, " and designated on the requisition "Meckel's diverticuli," is received in formalin and consists of a 4.6 x 2.8 x 2.3 cm blind pouch of small bowel. The external surface is pale pink and smooth. Upon opening the mucosal surface is a yellow-nicholas and finely granular. The bowel wall has an average thickness of 0.2 cm. Bail Agent sections are submitted in (B1). FB (under the direct supervision of a pathologist) The Gross Description was prepared using a voice recognition system. The report was reviewed for accuracy; however, sound-alike word errors, addition and/or deletions may occur. If there is any question about this report, please contact Client Services. PERFORMING LABORATORY: Technical component was performed by [facility], [address] [place] [id number] (CLIA# [id number]). Professional interpretation was performed by [facility], [address] [place] [address], [place] [phone] (CLIA#: [id number]). Diagnostician: Richie Byers MD Pathologist Electronically Signed 04/24/2023 Copies: ~ PATIENT NAME: LOREN MCLEAN PATHOLOGY DATE OF : 58 REPORT #: [id number] PHYSICIAN: HIRAM PATHOLOGY PCP: SUKUMAR ANTONIO MD REPORT IS CONFIDENTIAL AND NOT TO BE RELEASED WITHOUT AUTHORIZATION
== END 2023-04-22 13:20 | disposition home or self-care (01) | DRG 329 ==
LOC: MS 04-19 05:55 → DSVR 04-19 05:55 → MS 04-19 07:30
PROVIDERS: Nurse Anesthetist, Certified Registered; ADMIT Surgery; ATTEND Surgery
PROC: 0D1N0ZP Bypass Sigmoid Colon to Rectum, Open Approach (ICD-10-PCS; 2023-04-19)
PROC: 0DB80ZZ Excision of Small Intestine, Open Approach (ICD-10-PCS; 2023-04-19)
PROC: 0DTN0ZZ Resection of Sigmoid Colon, Open Approach (ICD-10-PCS; principal; 2023-04-19 07:30)
DX: K57.32 Diverticulitis of large intestine without perforation or abscess without bleeding (principal); K65.1 Peritoneal abscess; R18.8 Other ascites; Q43.0 Meckel's diverticulum (displaced) (hypertrophic); I10 Essential (primary) hypertension; Z98.52 Vasectomy status; Z79.899 Other long term (current) drug therapy; R63.4 Abnormal weight loss; E78.5 Hyperlipidemia, unspecified; Z79.51 Long term (current) use of inhaled steroids; G47.00 Insomnia, unspecified; Z68.24 Body mass index [BMI] 24.0-24.9, adult
CPT/HCPCS: 00840; 36415; 64488; 76942; 80048; 80053; 83735; 85025; 85060; A9270; J0131; J0690; J1100; J1170; J1200; J1644; J1885; J2001; J2250; J2405; J2704; J2795; J3010; J3475; J3490; J7121

== ENCOUNTER 2023-04-18 10:50 | Day surgery (SDC) | payer BC ==
[2023-04-12 15:07] VITALS: BP 108/64
[~2023-04-18] VITALS: Ht 175.3 cm; Wt 75.0 kg
[~2023-04-18 10:50] MED LIST changes: +AMBIEN5 MG PO; +DOXYCYCLINE HY100 MG PO; +MELATONIN5 M5 PO; +VITAMIN D3125 MC1 PO
[2023-04-18 11:10] VITALS: BP 101/62
--- NOTE | 2023-04-18 13:12 | NUR ---
04/18/23 1312 Simi Mera 1256- PT PRESENTS TO PACU LEFT LATERAL SEMI YOON POSITION. LR INFUSING TO RFA IV, O2 AT 2L PER NC. ABD ROUND/ FIRM, REPORTS FEELS FULL. ENCOURAGED TO PASS GAS TO DECREASE FULL FEELING. 1307- PT MOVED TO ROOM AIR AT THIS TIME, WILL CONTINUE TO MONITOR.
[2023-04-18 13:43] VITALS: BP 120/79
--- NOTE | 2023-04-18 15:49 | OR ---
[facility] [address] [place], [place] [address] Signed DATE OF OPERATION: 04/18/2023 SURGEON: Derik Olivera MD PREOPERATIVE DIAGNOSES: 1. Chronic recurrent and persistent diverticulitis with sigmoid stricture or narrowing. 2. Significant weight loss (25 pounds over six weeks). POSTOPERATIVE DIAGNOSES: 1. Extensive sigmoid and left-sided diverticulosis with strictured area, not passable by adult colonoscope. 2. Polyp of sigmoid at 25 cm. PROCEDURE: Total colonoscopy to cecum with cold morcellation, excision of polyp x1. ANESTHESIA: Intravenous sedation; fentanyl 150 mcg and Versed 9 mg. INDICATION: This 62-year-old white man is a patient of Dr. Sukumar Antonio, of [place], [place]. 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 The patient has been suffering chronic recurrent symptomatic diverticulitis and has had several bouts of antibiotic therapy. His last colonoscopy by me was in 2015, which showed sigmoid diverticulosis, but no other problems. A previous colonoscopy in 2000 showed only hemorrhoidal changes. The patient has had typical diverticulitis symptoms including left lower abdominal pain and CT scan performed showing long segmental mural wall thickening in the proximal sigmoid colon spanning at least 12 cm. Underlying diverticular disease was noted as well. This was performed on March 26, 2023. Hazy infiltrative changes were noted throughout the adjacent mesentery with thickening of the adjacent peritoneum and a mass-like band extending from the inferior wall of the sigmoid, contiguous with the bladder wall, but no sign of pneumoperitoneum and no sign of air in the bladder. His diet has been modified to include primarily a low-fiber and non-fiber diet which he tolerates reasonably well, however, even Ensure and other supplements have been problematic inducing left lower abdominal pain. A pre-albumin was obtained which was 13.3. He is admitted at this time to undergo colonoscopy, anticipating definitive sigmoid resection tomorrow. The colonoscopy is to ascertain the long strictured segment Electronically Signed By: DERIK OLIVERA MD 04/18/23 1549 PATIENT NAME: LOREN MCLEAN OPERATIVE REPORT DATE OF : 58 REPORT #: [id number] PHYSICIAN: DERIK OLIVERA MD PCP: SUKUMAR ANTONIO MD REPORT IS CONFIDENTIAL AND NOT TO BE RELEASED WITHOUT AUTHORIZATION [facility] [address] [place] [id number] Signed represents benign rather than malignant cause which would modify operative approach. The risk of colonoscopy including but not limited to bleeding, infection, and perforation were reviewed. He understands and wished to proceed. FINDINGS: An excellent prep was noted. The area in question in the sigmoid was not passable with a conventional adult colonoscope. On that basis, a pediatric upper endoscope was used, which traversed the area reasonably well. Complete colonoscopy was undertaken to the cecum. A small adenomatous appearing polyp was noted in the sigmoid, which was resected. The narrowed segment did not have characteristics of malignancy, though admittedly was narrow and no doubt has been the result of his chronic recurrent diverticulitis problem. There is no sign of lesion to contraindicate sigmoid resection as planned. DESCRIPTION OF PROCEDURE: The patient was brought to the endoscopy suite and placed in the lateral decubitus position, given intravenous sedation to the point of slurred speech and nystagmus with full cardiopulmonary monitoring. Digital rectal examination was normal. Prostate felt normal. An Olympus video colonoscope was passed in the rectum and manipulated into the sigmoid where numerous diverticula were noted. The scope was advanced to the area in question where narrow area would not allow accommodation of the adult colonoscope. I did not see ulceration or signs typical of malignancy. The mucosa was full and fluffy in the area. Various manipulations were undertaken to traverse the area, but it simply was not possible. This was about 20 cm. The scope was then withdrawn. The distal sigmoid and rectum appeared normal. Traversing the lesion in question was deemed essential to ascertain whether there was high probability of malignancy and to ascertain there were no lesions proximal to the area of stricture. On that basis, a pediatric colonoscope was requested, though it is out for repairs and on that basis, a pediatric upper endoscope was obtained and used for this purpose. Though the scope was a bit more flexible, it was carefully manipulated through the sigmoid and through the area of narrowing, ultimately passed into the cecum itself. The scope was withdrawn from the cecum and examination showed no sign of abnormality until the left colon where there were few scattered diverticula in the sigmoid where there were multiple diverticula and ultimately noting an adenomatous appearing polyp at about 25 cm. This was excised with cold morcellation technique. Further withdrawal through the area in question showed no sign of ulceration or a typical appearance of malignancy, but did have some edematous mucosa highly suggestive of a diverticular related stricture. Further withdrawal of retroflexed view of the rectum, which was normal. The scope was removed the patient was taken to the recovery room in good condition. Electronically Signed By: DERIK OLIVERA MD 04/18/23 1549 PATIENT NAME: LOREN MCLEAN OPERATIVE REPORT DATE OF : 58 REPORT #: [id number] PHYSICIAN: DERIK OLIVERA MD PCP: SUKUMAR ANTONIO MD REPORT IS CONFIDENTIAL AND NOT TO BE RELEASED WITHOUT AUTHORIZATION [facility] [address] [place], [place] [address] Signed CONCLUDING DIAGNOSES: Chronic recurrent persistent diverticulitis with resultant sigmoid stricture. Small polyp adenomatous in the sigmoid, likely to be incorporated additionally with sigmoid resection. PLAN: Our plan has been for sigmoid resection tomorrow. He has oral antibiotics that he will be taking today and maintain a liquid diet today including Ensure as appropriate. I did discuss with him in detail the notable findings on his nutritional profile including low pre-albumin. Delay of his operation to allow for additional nutritional resuscitation would unlikely be tolerated as he still has symptoms even with oral intake of Ensure and other similar liquids. If it is problematic enough, consideration will be made for primary coloproctostomy and a diverting loop ileostomy, however, unlikely that might be. MD XIOMY Burnette/BOBBI /[id number] cc: Dr. Sukumar Antonio, [place], [place] Copies: ~ Electronically Signed By: DERIK OLIVERA MD 04/18/23 1549 PATIENT NAME: LOREN MCLEAN OPERATIVE REPORT DATE OF : 58 REPORT #: [id number] PHYSICIAN: DERIK OLIVERA MD PCP: SUKUMAR ANTONIO MD REPORT IS CONFIDENTIAL AND NOT TO BE RELEASED WITHOUT AUTHORIZATION
--- NOTE | 2023-04-20 15:27 | PATH ---
[facility] [address] [place], [place] [address] Signed SPECIMEN(S): A COLON POLYP AT 30 CM SPECIMEN SOURCE: A. COLON POLYP AT 30 CM CLINICAL HISTORY: Diverticulosis, recurrent diverticulitis. Postop: Stricturing colon, diverticulosis, polyp x1 FINAL PATHOLOGIC DIAGNOSIS: Colon polyp at 30 cm: - Inflammatory polyp (three fragments). JVR:[facility] MICROSCOPIC EXAMINATION: Histologic sections of all submitted blocks are examined by light microscopy. These findings, together with the gross examination, support the pathologic diagnosis. GROSS DESCRIPTION: The specimen, labeled and designated "Terry, colon polyp at 30 cm," is received in formalin and consists of three nicholas soft tissue fragments, ranging from 0.1-0.3 cm. Entirely submitted in (A1). VB (under the direct supervision of a pathologist) The Gross Description was prepared using a voice recognition system. The report was reviewed for accuracy; however, sound-alike word errors, addition and/or deletions may occur. If there is any question about this report, please contact Client Services. PERFORMING LABORATORY: Technical component was performed by [facility], [address] [place] [id number] (CLIA# [id number]). Professional interpretation was performed by [facility], [address] [place] [id number] (CLIA#: [id number]). Diagnostician: Richie Byers MD Pathologist Electronically Signed 04/20/2023 Copies: PATIENT NAME: LOREN MCLEAN PATHOLOGY DATE OF : 58 REPORT #: [id number] PHYSICIAN: HIRAM PATHOLOGY PCP: SUKUMAR ANTONIO MD REPORT IS CONFIDENTIAL AND NOT TO BE RELEASED WITHOUT AUTHORIZATION [address] [address] Signed ~ PATIENT NAME: LOREN MCLEAN PATHOLOGY DATE OF : 58 REPORT #: [id number] PHYSICIAN: HIRAM PATHOLOGY PCP: SUKUMAR ANTONIO MD REPORT IS CONFIDENTIAL AND NOT TO BE RELEASED WITHOUT AUTHORIZATION
== END 2023-04-18 13:52 | disposition home or self-care (01) ==
LOC: OPS 10:50 → DS 10:50 → OPS 12:00
PROVIDERS: ATTEND Surgery
PROC: 0DBE8ZZ Excision of Large Intestine, Via Natural or Artificial Opening Endoscopic (ICD-10-PCS; principal; 2023-04-18 12:00)
DX: K57.30 Diverticulosis of large intestine without perforation or abscess without bleeding (principal); K63.5 Polyp of colon; R63.4 Abnormal weight loss; I10 Essential (primary) hypertension; Z98.52 Vasectomy status; Z68.22 Body mass index [BMI] 22.0-22.9, adult
CPT/HCPCS: 99153; A9270; G0500; J2250; J3010; J7121